=== PATIENT | female | born 1985 | race Two or more races ===

== ENCOUNTER 2017-10-26 22:22 | Emergency (ER) | payer MEDICAID, OTHER ==
[~2017-10-26] VITALS: Ht 152.4 cm; Wt 74.8 kg
[2017-10-26 22:22] VITALS: BP 146/95
[2017-10-26 23:21] LABS: Urine Bacteria NONE SEEN /hpf (None Seen); Urine Blood Negative /uL (Negative); Urine Specific Gravity 1.004 (1.001-1.035); Urine WBC 1 /hpf (0 - 5)
== END 2017-10-27 05:47 | disposition left against medical advice (07) ==
LOC: ER 22:22
DX: R10.11 Right upper quadrant pain (principal); R11.2 Nausea with vomiting, unspecified; Z53.21 Procedure and treatment not carried out due to patient leaving prior to being seen by health care provider
CPT/HCPCS: 81001; 81025